=== PATIENT | male | born 1955 | race Two or more races ===

== ENCOUNTER 2016-12-02 10:08 | Inpatient (IN) | payer MEDICARE, MEDICAID ==
[~2016-12-02] VITALS: Ht 165.1 cm; Wt 81.9 kg
[~2016-12-02 10:08] MED LIST: AMOX500T86 PO; ASPI-231 PO; DIPH2.5T73 PO; DOCU-94 PO; GABA-497 PO; HYDR-4663 PO; MULTCHW OR; SENN-58 PO
[2016-12-02] MEDS ORDERED: FENO145T20 PO (10:27)
[2016-12-02] MEDS ORDERED: INSU70IN3 SC (10:29)
[2016-12-02] MEDS ORDERED: TAMS0.4C36 PO (10:29)
[2016-12-02] MEDS ORDERED: MULT-647 PO (10:30)
[2016-12-02] MEDS ORDERED: CLINDAMYCIN 600MG IV 50 ML IV ONE (10:30)
[2016-12-02 10:57] LABS: Basophils # (auto) 0.1 uL; Basophils % (auto) 0.4 % (0.0-2.0); Eosinophils # (auto) 0.3 uL; Eosinophils % (auto) 1.7 % (0.0-7.0); Hematocrit 31.2 % (41.0-53.0); Hemoglobin 10.1 g/dL (13.5-17.5); Lymphocytes # (auto) 1.1 uL; Lymphocytes % (auto) 6.9 % (10.0-50.0); Mean Corpuscular Hemoglobin 32.5 pg (28.0-32.0); Mean Corpuscular Hgb Conc. 32.6 g/dL (32.0-36.0); Mean Corpuscular Volume 99.9 fL (80.0-100.0); Mean Platelet Volume 8.8 fL (6.9-10.8); Monocytes % (auto) 6.2 % (0.0-12.0); Neutrophils # (auto) 13.8 uL; Neutrophils % (auto) 84.8 % (37.0-80.0); Platelet Count (auto) 247 10^3/uL (140-450); Red Cell Distribution Width 15.4 % (11.8-14.3); White Blood Cell 16.3 10^3/uL (4.4-10.8)
[2016-12-02 11:16] LABS: Albumin 2.5 g/dL (3.4-5.0); BUN/Creatinine Ratio 4.3; Bilirubin, Total 0.7 mg/dL (0.2-1.0); Calcium 8.1 mg/dL (8.5-10.1); Potassium 4.2 mmol/L (3.5-5.1); Total Protein 8.3 g/dL (6.4-8.2)
[2016-12-02 11:25] LABS: INR 1.12 (0.9-1.15); Partial Thromboplastin Time 31.7 sec (22.64-33.71); Prothrombin Time 12.2 sec (9.37-12.3)
[2016-12-02] MEDS ORDERED: ONDANSETRON HCL 4 MG/2 ML VIAL IV PRN (11:30)
[2016-12-02] MEDS ORDERED: NITROGLYCERIN 0.4 MG SL TAB SL PRN (11:30)
[2016-12-02] MEDS ORDERED: MORPHINE SULF INJ 2 MG/ML SYRINGE 1ML IV PRN (11:30)
[2016-12-02] MEDS ORDERED: DEXTROSE (50%) 50ML SYRG IV PRN (11:30)
[2016-12-02] MEDS ORDERED: ACETAMINOPHEN 325 MG TAB PO PRN (11:30)
[2016-12-02] MEDS ORDERED: HYDROcodone-ACET 5/325MG TAB PO PRN (11:30)
[2016-12-02] MEDS: InsuLIN REG 1unit/0.01ml Soln (100units/ml) SC SCH ×3 (11:30→22:00)
[2016-12-02] MEDS ORDERED: DOCUSATE SOD 100 MG CAP PO PRN (11:30)
[2016-12-02] MEDS ORDERED: DIPHENOXYLATE W/ATROPINE 2.5 MG TAB PO PRN (11:45)
[2016-12-02] MEDS ORDERED: SENNA 8.6 MG TAB PO PRN (11:45)
[2016-12-02] MEDS ORDERED: cefTRIAXone 1GM/50ML D5W 50 ML IV ONE (11:45)
[2016-12-02] MEDS: ACCU-CHEK COMFORT CURVE STRIP VI SCH ×3 (12:26→22:02)
[2016-12-02] MEDS: SEVELAMER 800 MG TAB PO SCH ×2 (12:31→18:07)
[2016-12-02] MEDS: INSULIN 70/30 1unit/0.01ml Susp (100units/ml) SC SCH ×2 (12:31→18:00)
[2016-12-02] MEDS: MULTIPLE VITAMIN TAB PO SCH (12:32)
[2016-12-02] MEDS: ASCORBIC ACID 500 MG TAB PO SCH ×2 (12:32→22:01)
[2016-12-02] MEDS: ZINC SULFATE 220 MG CAP PO SCH (12:32)
[2016-12-02] MEDS: SODIUM CHLOR 0.9% PF (SALINE LOCK) 10ML VIAL IV SCH ×2 (12:32→22:01)
[2016-12-02] MEDS: FAMOTIDINE 20 MG TAB PO SCH ×2 (12:32→22:01)
[2016-12-02 13:03] LABS: B-Type Natriuretic Peptide 614.62 pg/mL (0-100)
[2016-12-02 13:10] LABS: Temperature: 22.4 C (20.0-25.0)
[2016-12-02 13:15] VITALS: BP 166/78
[2016-12-02 13:30] VITALS: BP 166/78
[2016-12-02] MEDS ORDERED: GABAPENTIN 300 MG CAP PO SCH (14:00)
[2016-12-02] MEDS: GABAPENTIN 300 MG CAP PO SCH (14:07)
[2016-12-02 16:45] VITALS: BP 150/72
[2016-12-02] MEDS: TAMSULOSIN HYDROCHLORIDE 0.4 MG CAP PO SCH (18:07)
[2016-12-02] MEDS: CLINDAMYCIN 300MG IV 50 ML IV SCH (18:56)
[2016-12-02] MEDS: ATORVASTATIN 20 MG TAB PO SCH (22:01)
[2016-12-02 22:56] VITALS: BP 140/66
[2016-12-03] VITALS (8 sets, daily range): BP systolic 123–144; BP diastolic 53–94
[2016-12-03] MEDS: CLINDAMYCIN 300MG IV 50 ML IV SCH ×2 (02:54→11:00)
[2016-12-03 05:19] LABS: Basophils # (auto) 0.1 uL; Basophils % (auto) 0.3 % (0.0-2.0); Eosinophils # (auto) 0.3 uL; Eosinophils % (auto) 1.6 % (0.0-7.0); Hematocrit 28.9 % (41.0-53.0); Hemoglobin 9.4 g/dL (13.5-17.5); Lymphocytes # (auto) 1.4 uL; Lymphocytes % (auto) 8.8 % (10.0-50.0); Mean Corpuscular Hemoglobin 32.6 pg (28.0-32.0); Mean Corpuscular Hgb Conc. 32.5 g/dL (32.0-36.0); Mean Corpuscular Volume 100.3 fL (80.0-100.0); Monocytes # (auto) 1.3 uL; Monocytes % (auto) 8.2 % (0.0-12.0); Neutrophils # (auto) 12.6 uL; Neutrophils % (auto) 81.1 % (37.0-80.0); Platelet Count (auto) 257 10^3/uL (140-450); Red Cell Distribution Width 15.2 % (11.8-14.3); White Blood Cell 15.5 10^3/uL (4.4-10.8)
[2016-12-03] MEDS: SODIUM CHLOR 0.9% PF (SALINE LOCK) 10ML VIAL IV SCH ×3 (05:46→21:32)
[2016-12-03 05:48] LABS: Albumin 2.4 g/dL (3.4-5.0); Calcium 8.2 mg/dL (8.5-10.1); Potassium 4.4 mmol/L (3.5-5.1)
[2016-12-03 05:57] LABS: BUN/Creatinine Ratio 4.5; Bilirubin, Total 0.6 mg/dL (0.2-1.0); Total Protein 7.8 g/dL (6.4-8.2)
[2016-12-03] MEDS: ACCU-CHEK COMFORT CURVE STRIP VI SCH ×4 (06:03→21:32)
[2016-12-03] MEDS: InsuLIN REG 1unit/0.01ml Soln (100units/ml) SC SCH ×4 (06:11→22:00)
[2016-12-03] MEDS ORDERED: SODIUM CHL 0.9% 1000 ML BAG XX ONE (08:00)
[2016-12-03] MEDS ORDERED: EPOETIN ALFA 2,000 UNIT/1 ML VIAL IV ONE (08:00)
[2016-12-03] MEDS ORDERED: EPOETIN ALFA 3,000 UNIT/1 ML VIAL IV ONE (08:00)
[2016-12-03] MEDS: SEVELAMER 800 MG TAB PO SCH ×3 (08:23→17:03)
[2016-12-03] MEDS: INSULIN 70/30 1unit/0.01ml Susp (100units/ml) SC SCH ×3 (08:23→17:14)
[2016-12-03] MEDS: cefTRIAXone 1GM/50ML D5W 50 ML IV SCH (08:34)
[2016-12-03] MEDS: ZINC SULFATE 220 MG CAP PO SCH (10:00)
[2016-12-03] MEDS ORDERED: B-COMPLEX W/ C & FOLIC ACID(NEPHROVITE TAB) PO SCH (10:00)
[2016-12-03] MEDS: GABAPENTIN 300 MG CAP PO SCH (10:31)
[2016-12-03] MEDS: ASCORBIC ACID 500 MG TAB PO SCH ×2 (10:31→21:32)
[2016-12-03] MEDS: MULTIPLE VITAMIN TAB PO SCH (10:31)
[2016-12-03] MEDS: ASPirin-EC 81 mg tab PO SCH (10:31)
[2016-12-03] MEDS: FAMOTIDINE 20 MG TAB PO SCH ×2 (10:31→21:31)
[2016-12-03] MEDS: Boost Glucose Control 8 Ounces PO SCH ×2 (11:53→17:03)
[2016-12-03] MEDS: TAMSULOSIN HYDROCHLORIDE 0.4 MG CAP PO SCH (17:03)
[2016-12-03] MEDS: PRO-STAT 64 30ML PO SCH (17:03)
[2016-12-03] MEDS ORDERED: VANCOMYCIN 1GM/250ML D5W 250 ML IV ONE (18:00)
[2016-12-03] MEDS ORDERED: VANCOMYCIN PER PHARMACY 0 MG IV SCH (18:00)
[2016-12-03] MEDS: TEMAZEPAM 15 MG CAP PO PRN (21:30)
[2016-12-03] MEDS: ATORVASTATIN 20 MG TAB PO SCH (21:32)
[2016-12-04 05:19] LABS: Basophils # (auto) 0.1 uL; Basophils % (auto) 0.5 % (0.0-2.0); Eosinophils # (auto) 0.2 uL; Eosinophils % (auto) 1.4 % (0.0-7.0); Hematocrit 29.1 % (41.0-53.0); Hemoglobin 9.6 g/dL (13.5-17.5); Lymphocytes # (auto) 1.6 uL; Lymphocytes % (auto) 10.4 % (10.0-50.0); Mean Corpuscular Hemoglobin 33.1 pg (28.0-32.0); Mean Corpuscular Volume 100.1 fL (80.0-100.0); Mean Platelet Volume 8.7 fL (6.9-10.8); Monocytes # (auto) 1.4 uL; Monocytes % (auto) 8.7 % (0.0-12.0); Neutrophils # (auto) 12.4 uL; Nucleated Red Blood Cells % 0.2 %; Platelet Count (auto) 281 10^3/uL (140-450); Red Cell Distribution Width 15.5 % (11.8-14.3); White Blood Cell 15.7 10^3/uL (4.4-10.8)
[2016-12-04 05:23] VITALS: BP 117/52
[2016-12-04 05:36] LABS: Albumin 2.3 g/dL (3.4-5.0); Potassium 3.9 mmol/L (3.5-5.1)
[2016-12-04 05:38] LABS: BUN/Creatinine Ratio 4.2
[2016-12-04 05:44] LABS: Bilirubin, Total 0.6 mg/dL (0.2-1.0)
[2016-12-04] MEDS: ACCU-CHEK COMFORT CURVE STRIP VI SCH ×4 (06:51→21:25)
[2016-12-04] MEDS: SODIUM CHLOR 0.9% PF (SALINE LOCK) 10ML VIAL IV SCH ×3 (06:51→21:25)
[2016-12-04] MEDS: InsuLIN REG 1unit/0.01ml Soln (100units/ml) SC SCH ×4 (06:51→21:40)
[2016-12-04] MEDS: PRO-STAT 64 30ML PO SCH ×2 (07:38→17:14)
[2016-12-04] MEDS: Boost Glucose Control 8 Ounces PO SCH ×3 (07:38→17:14)
[2016-12-04 08:00] VITALS: BP 123/53
[2016-12-04] MEDS: SEVELAMER 800 MG TAB PO SCH ×3 (08:00→17:36)
[2016-12-04] MEDS: INSULIN 70/30 1unit/0.01ml Susp (100units/ml) SC SCH ×3 (08:00→17:37)
[2016-12-04 08:40] VITALS: BP 126/53
[2016-12-04] MEDS: cefTRIAXone 1GM/50ML D5W 50 ML IV SCH (08:43)
[2016-12-04] MEDS: FAMOTIDINE 20 MG TAB PO SCH ×2 (10:00→21:24)
[2016-12-04] MEDS: ZINC SULFATE 220 MG CAP PO SCH (10:00)
[2016-12-04] MEDS: GABAPENTIN 300 MG CAP PO SCH (10:00)
[2016-12-04] MEDS: MULTIPLE VITAMIN TAB PO SCH (10:00)
[2016-12-04] MEDS: ASCORBIC ACID 500 MG TAB PO SCH ×2 (10:00→21:24)
[2016-12-04] MEDS: ASPirin-EC 81 mg tab PO SCH (10:00)
[2016-12-04 13:05] VITALS: BP 96/44
[2016-12-04] MEDS ORDERED: ceFAZolin 1GM/50ML D5W 50 ML IV ONE (13:51)
[2016-12-04] MEDS ORDERED: VANCOMYCIN 1GM/250ML D5W 250 ML IV ONE ×2 (15:00→16:00)
[2016-12-04 16:19] VITALS: BP 123/53
[2016-12-04] MEDS: TAMSULOSIN HYDROCHLORIDE 0.4 MG CAP PO SCH (17:36)
[2016-12-04] MEDS: ATORVASTATIN 20 MG TAB PO SCH (21:24)
[2016-12-04 23:57] VITALS: BP 148/66
[2016-12-05 05:26] LABS: Basophils # (auto) 0.8 uL; Eosinophils # (auto) 0.3 uL; Eosinophils % (auto) 2.3 % (0.0-7.0); Hematocrit 31.1 % (41.0-53.0); Hemoglobin 10.1 g/dL (13.5-17.5); Lymphocytes # (auto) 0.9 uL; Lymphocytes % (auto) 7.2 % (10.0-50.0); Mean Corpuscular Hemoglobin 32.5 pg (28.0-32.0); Mean Corpuscular Hgb Conc. 32.6 g/dL (32.0-36.0); Mean Corpuscular Volume 99.8 fL (80.0-100.0); Monocytes # (auto) 1.1 uL; Monocytes % (auto) 8.5 % (0.0-12.0); Neutrophils # (auto) 9.7 uL; Platelet Count (auto) 323 10^3/uL (140-450); Red Cell Distribution Width 15.4 % (11.8-14.3); White Blood Cell 12.8 10^3/uL (4.4-10.8)
[2016-12-05 05:45] VITALS: BP 139/66
[2016-12-05 05:49] LABS: Potassium 4.2 mmol/L (3.5-5.1)
[2016-12-05 05:57] LABS: Albumin 2.4 g/dL (3.4-5.0); Bilirubin, Total 0.5 mg/dL (0.2-1.0); Calcium 8.2 mg/dL (8.5-10.1); Total Protein 8.3 g/dL (6.4-8.2)
[2016-12-05] MEDS: InsuLIN REG 1unit/0.01ml Soln (100units/ml) SC SCH ×4 (06:25→22:08)
[2016-12-05] MEDS: SODIUM CHLOR 0.9% PF (SALINE LOCK) 10ML VIAL IV SCH ×3 (06:25→21:37)
[2016-12-05] MEDS: ACCU-CHEK COMFORT CURVE STRIP VI SCH ×4 (06:25→22:06)
[2016-12-05] MEDS: Boost Glucose Control 8 Ounces PO SCH ×3 (07:54→17:37)
[2016-12-05] MEDS: PRO-STAT 64 30ML PO SCH ×2 (07:54→17:37)
[2016-12-05] MEDS: SEVELAMER 800 MG TAB PO SCH ×3 (07:57→17:37)
[2016-12-05] MEDS: cefTRIAXone 1GM/50ML D5W 50 ML IV SCH (09:14)
[2016-12-05 09:17] VITALS: BP 152/71
[2016-12-05] MEDS: ZINC SULFATE 220 MG CAP PO SCH (09:35)
[2016-12-05] MEDS: GABAPENTIN 300 MG CAP PO SCH (09:36)
[2016-12-05] MEDS: MULTIPLE VITAMIN TAB PO SCH (09:36)
[2016-12-05] MEDS: ASCORBIC ACID 500 MG TAB PO SCH ×2 (09:36→21:36)
[2016-12-05] MEDS: FAMOTIDINE 20 MG TAB PO SCH ×2 (09:36→21:36)
[2016-12-05] MEDS: ASPirin-EC 81 mg tab PO SCH (09:36)
[2016-12-05] MEDS: INSULIN 70/30 1unit/0.01ml Susp (100units/ml) SC SCH ×2 (09:37→22:08)
[2016-12-05] MEDS ORDERED: EPOETIN ALFA 10,000 UNIT/1 ML VIAL IV ONE (12:00)
[2016-12-05 17:00] VITALS: BP 104/56
[2016-12-05] MEDS: TAMSULOSIN HYDROCHLORIDE 0.4 MG CAP PO SCH (17:37)
[2016-12-05 19:57] VITALS: BP 110/55
[2016-12-05] MEDS: ATORVASTATIN 20 MG TAB PO SCH (21:36)
[2016-12-05 22:00] VITALS: BP 121/63
[2016-12-06 05:28] VITALS: BP 110/56
[2016-12-06] MEDS: SODIUM CHLOR 0.9% PF (SALINE LOCK) 10ML VIAL IV SCH ×3 (06:37→21:33)
[2016-12-06] MEDS: ACCU-CHEK COMFORT CURVE STRIP VI SCH ×4 (06:37→21:33)
[2016-12-06] MEDS: InsuLIN REG 1unit/0.01ml Soln (100units/ml) SC SCH ×4 (06:38→22:00)
[2016-12-06 07:59] VITALS: BP 84/49
[2016-12-06 08:00] VITALS: BP 101/59
[2016-12-06] MEDS: SEVELAMER 800 MG TAB PO SCH ×3 (08:00→17:37)
[2016-12-06] MEDS: Boost Glucose Control 8 Ounces PO SCH ×3 (08:00→17:37)
[2016-12-06] MEDS: PRO-STAT 64 30ML PO SCH ×2 (08:00→17:37)
[2016-12-06 08:02] VITALS: BP 101/59
[2016-12-06] MEDS: cefTRIAXone 1GM/50ML D5W 50 ML IV SCH (08:33)
[2016-12-06] MEDS: INSULIN 70/30 1unit/0.01ml Susp (100units/ml) SC SCH ×2 (10:00→22:00)
[2016-12-06] MEDS: ZINC SULFATE 220 MG CAP PO SCH (10:00)
[2016-12-06] MEDS: ASCORBIC ACID 500 MG TAB PO SCH ×2 (10:00→21:33)
[2016-12-06] MEDS: ASPirin-EC 81 mg tab PO SCH (10:00)
[2016-12-06] MEDS: ceFAZolin 1GM/50ML D5W 50 ML IV SCH ×2 (10:00→17:36)
[2016-12-06] MEDS: GABAPENTIN 300 MG CAP PO SCH (10:00)
[2016-12-06] MEDS: MULTIPLE VITAMIN TAB PO SCH (10:00)
[2016-12-06] MEDS: FAMOTIDINE 20 MG TAB PO SCH ×2 (10:00→21:33)
[2016-12-06] MEDS ORDERED: NEOMYCIN-BACITRACIN-POLYM 15GM TOP OINT TOP ONE (11:27)
[2016-12-06] MEDS ORDERED: BUPIVACAINE 0.75% INJ 10ML MPV SDV IJ ONE (11:27)
[2016-12-06] MEDS ORDERED: ceFAZolin 1GM VL ONE (11:27)
[2016-12-06] MEDS ORDERED: fentaNYL CITRATE 100 MCG/2 ML VL ONE (12:12)
[2016-12-06] MEDS ORDERED: MIDAZOLAM HCL 1MG/1ML-2 ML VIAL ONE (12:12)
[2016-12-06] MEDS ORDERED: PROPOFOL 10 MG/ML 20 ML IV ONE (12:16)
[2016-12-06] MEDS ORDERED: HYDROmorphone HCL 2 MG/ML VL IV PRN (12:45)
[2016-12-06] MEDS ORDERED: ACCU-CHEK COMFORT CURVE STRIP VI ONE (12:45)
[2016-12-06] MEDS ORDERED: ONDANSETRON HCL 4 MG/2 ML VIAL IV ONE (12:45)
[2016-12-06] MEDS ORDERED: fentaNYL CITRATE 100 MCG/2 ML VL IV PRN (12:45)
[2016-12-06] MEDS ORDERED: ePHEDrine SULFATE 50 MG/ML AMP ONE (12:49)
[2016-12-06] MEDS ORDERED: ONDANSETRON HCL 4 MG/2 ML VIAL ONE (12:57)
[2016-12-06] MEDS ORDERED: METOCLOPRAMIDE HCL 5MG/ml INJ 2ml VIAL ONE (12:57)
[2016-12-06 17:14] VITALS: BP 101/51
[2016-12-06] MEDS: TAMSULOSIN HYDROCHLORIDE 0.4 MG CAP PO SCH (17:36)
[2016-12-06] MEDS: ATORVASTATIN 20 MG TAB PO SCH (21:33)
[2016-12-06 22:00] VITALS: BP 135/67
[2016-12-06] MEDS: TEMAZEPAM 15 MG CAP PO PRN (23:45)
[2016-12-07] VITALS (8 sets, daily range): BP systolic 102–152; BP diastolic 56–74
[2016-12-07] MEDS: ceFAZolin 1GM/50ML D5W 50 ML IV SCH ×3 (02:16→17:28)
[2016-12-07] MEDS: ACCU-CHEK COMFORT CURVE STRIP VI SCH ×4 (06:33→21:49)
[2016-12-07] MEDS: SODIUM CHLOR 0.9% PF (SALINE LOCK) 10ML VIAL IV SCH ×3 (06:33→21:46)
[2016-12-07] MEDS: MORPHINE SULF INJ 2 MG/ML SYRINGE 1ML IV PRN ×3 (06:34→21:03)
[2016-12-07] MEDS: InsuLIN REG 1unit/0.01ml Soln (100units/ml) SC SCH ×4 (06:34→21:49)
[2016-12-07] MEDS: SEVELAMER 800 MG TAB PO SCH ×3 (07:30→17:27)
[2016-12-07] MEDS: Boost Glucose Control 8 Ounces PO SCH ×3 (08:00→17:28)
[2016-12-07] MEDS: PRO-STAT 64 30ML PO SCH ×2 (08:00→17:28)
[2016-12-07] MEDS: INSULIN 70/30 1unit/0.01ml Susp (100units/ml) SC SCH ×2 (10:00→21:49)
[2016-12-07 10:39] LABS: Basophils # (auto) 0.1 uL; Basophils % (auto) 0.7 % (0.0-2.0); Eosinophils # (auto) 0.2 uL; Lymphocytes # (auto) 1.3 uL; Mean Platelet Volume 8.3 fL (6.9-10.8); Monocytes % (auto) 9.2 % (0.0-12.0); Neutrophils # (auto) 8.5 uL
[2016-12-07 10:40] LABS: Eosinophils % (auto) 1.6 % (0.0-7.0); Hematocrit 30.5 % (41.0-53.0); Lymphocytes % (auto) 11.5 % (10.0-50.0); Mean Corpuscular Hemoglobin 33.5 pg (28.0-32.0); Mean Corpuscular Hgb Conc. 32.9 g/dL (32.0-36.0); Mean Corpuscular Volume 101.7 fL (80.0-100.0); Platelet Count (auto) 341 10^3/uL (140-450); Red Cell Distribution Width 15.8 % (11.8-14.3)
[2016-12-07 10:57] LABS: Calcium 8.4 mg/dL (8.5-10.1)
[2016-12-07] MEDS: ZINC SULFATE 220 MG CAP PO SCH (12:41)
[2016-12-07] MEDS: FAMOTIDINE 20 MG TAB PO SCH ×2 (12:41→21:46)
[2016-12-07] MEDS: ASPirin-EC 81 mg tab PO SCH (12:41)
[2016-12-07] MEDS: GABAPENTIN 300 MG CAP PO SCH (12:41)
[2016-12-07] MEDS: ASCORBIC ACID 500 MG TAB PO SCH ×2 (12:42→21:46)
[2016-12-07] MEDS: MULTIPLE VITAMIN TAB PO SCH (12:42)
[2016-12-07] MEDS: TAMSULOSIN HYDROCHLORIDE 0.4 MG CAP PO SCH (17:27)
[2016-12-07] MEDS: ATORVASTATIN 20 MG TAB PO SCH (21:46)
[2016-12-08] VITALS (7 sets, daily range): BP systolic 121–154; BP diastolic 60–73
[2016-12-08] MEDS: ceFAZolin 1GM/50ML D5W 50 ML IV SCH ×3 (01:51→17:40)
[2016-12-08] MEDS: SODIUM CHLOR 0.9% PF (SALINE LOCK) 10ML VIAL IV SCH ×3 (05:25→21:53)
[2016-12-08 05:57] LABS: Basophils # (auto) 0.1 uL; Eosinophils # (auto) 0.2 uL; Monocytes # (auto) 1.2 uL; Neutrophils # (auto) 7.6 uL
[2016-12-08 05:59] LABS: Basophils % (auto) 0.6 % (0.0-2.0); Eosinophils % (auto) 1.5 % (0.0-7.0); Hemoglobin 9.1 g/dL (13.5-17.5); Lymphocytes # (auto) 1.6 uL; Lymphocytes % (auto) 15.1 % (10.0-50.0); Mean Corpuscular Hemoglobin 33.5 pg (28.0-32.0); Mean Corpuscular Hgb Conc. 32.6 g/dL (32.0-36.0); Mean Corpuscular Volume 102.5 fL (80.0-100.0); Mean Platelet Volume 8.2 fL (6.9-10.8); Monocytes % (auto) 11.3 % (0.0-12.0); Neutrophils % (auto) 71.5 % (37.0-80.0); Nucleated Red Blood Cells % 0.1 %; Platelet Count (auto) 346 10^3/uL (140-450); Red Cell Distribution Width 16.3 % (11.8-14.3); White Blood Cell 10.6 10^3/uL (4.4-10.8)
[2016-12-08] MEDS: ACCU-CHEK COMFORT CURVE STRIP VI SCH ×4 (06:21→21:56)
[2016-12-08] MEDS: InsuLIN REG 1unit/0.01ml Soln (100units/ml) SC SCH ×4 (06:21→21:56)
[2016-12-08] MEDS: PRO-STAT 64 30ML PO SCH ×2 (08:06→18:03)
[2016-12-08] MEDS: Boost Glucose Control 8 Ounces PO SCH ×3 (08:06→18:03)
[2016-12-08] MEDS: SEVELAMER 800 MG TAB PO SCH ×3 (08:07→17:40)
[2016-12-08] MEDS: INSULIN 70/30 1unit/0.01ml Susp (100units/ml) SC SCH ×2 (10:00→21:56)
[2016-12-08] MEDS: ASCORBIC ACID 500 MG TAB PO SCH ×2 (10:30→21:54)
[2016-12-08] MEDS: GABAPENTIN 300 MG CAP PO SCH (10:30)
[2016-12-08] MEDS: ASPirin-EC 81 mg tab PO SCH (10:30)
[2016-12-08] MEDS: FAMOTIDINE 20 MG TAB PO SCH ×2 (10:30→21:54)
[2016-12-08] MEDS: MULTIPLE VITAMIN TAB PO SCH (10:30)
[2016-12-08] MEDS: ZINC SULFATE 220 MG CAP PO SCH (10:30)
[2016-12-08] MEDS ORDERED: BACITRACIN TOP OINT 1 UD PKG TOP SCH (13:15)
[2016-12-08] MEDS ORDERED: NEOMYCIN-BACITRACIN-POLYM 15GM TOP OINT TOP SCH (14:30)
[2016-12-08] MEDS: MORPHINE SULF INJ 2 MG/ML SYRINGE 1ML IV PRN (14:39)
[2016-12-08] MEDS: TAMSULOSIN HYDROCHLORIDE 0.4 MG CAP PO SCH (17:40)
[2016-12-08] MEDS: ATORVASTATIN 20 MG TAB PO SCH (21:54)
[2016-12-09] MEDS: ceFAZolin 1GM/50ML D5W 50 ML IV SCH ×2 (01:39→10:00)
[2016-12-09 05:00] VITALS: BP 135/69
[2016-12-09] MEDS: SODIUM CHLOR 0.9% PF (SALINE LOCK) 10ML VIAL IV SCH ×3 (05:38→21:23)
[2016-12-09] MEDS: ACCU-CHEK COMFORT CURVE STRIP VI SCH ×4 (06:20→21:24)
[2016-12-09] MEDS: InsuLIN REG 1unit/0.01ml Soln (100units/ml) SC SCH ×4 (06:20→21:37)
[2016-12-09 07:07] LABS: Basophils # (auto) 0.1 uL
[2016-12-09 07:08] LABS: BUN/Creatinine Ratio 4.3; Calcium 8.4 mg/dL (8.5-10.1)
[2016-12-09 07:10] LABS: Basophils % (auto) 0.6 % (0.0-2.0); Eosinophils # (auto) 0.2 uL; Eosinophils % (auto) 2.1 % (0.0-7.0); Hematocrit 28.7 % (41.0-53.0); Hemoglobin 9.3 g/dL (13.5-17.5); Lymphocytes # (auto) 1.6 uL; Lymphocytes % (auto) 14.8 % (10.0-50.0); Mean Corpuscular Hemoglobin 33.3 pg (28.0-32.0); Mean Corpuscular Hgb Conc. 32.5 g/dL (32.0-36.0); Mean Corpuscular Volume 102.5 fL (80.0-100.0); Mean Platelet Volume 8.3 fL (6.9-10.8); Monocytes # (auto) 0.9 uL; Monocytes % (auto) 8.2 % (0.0-12.0); Neutrophils # (auto) 8.1 uL; Neutrophils % (auto) 74.3 % (37.0-80.0); Platelet Count (auto) 383 10^3/uL (140-450); Red Cell Distribution Width 16.3 % (11.8-14.3)
[2016-12-09 08:00] VITALS: BP 108/51
[2016-12-09] MEDS: Boost Glucose Control 8 Ounces PO SCH ×3 (08:00→18:17)
[2016-12-09] MEDS: SEVELAMER 800 MG TAB PO SCH ×3 (08:05→18:17)
[2016-12-09] MEDS: PRO-STAT 64 30ML PO SCH ×2 (08:06→18:17)
[2016-12-09] MEDS: FAMOTIDINE 20 MG TAB PO SCH ×2 (10:00→21:37)
[2016-12-09] MEDS: MULTIPLE VITAMIN TAB PO SCH (10:00)
[2016-12-09] MEDS: GABAPENTIN 300 MG CAP PO SCH (10:00)
[2016-12-09] MEDS: ASCORBIC ACID 500 MG TAB PO SCH ×2 (10:00→21:37)
[2016-12-09] MEDS: INSULIN 70/30 1unit/0.01ml Susp (100units/ml) SC SCH ×2 (10:00→21:37)
[2016-12-09] MEDS: ASPirin-EC 81 mg tab PO SCH (10:00)
[2016-12-09] MEDS: ZINC SULFATE 220 MG CAP PO SCH (10:00)
[2016-12-09] MEDS ORDERED: HYDROcodone-ACET 5/325MG TAB PO PRN (10:15)
[2016-12-09] MEDS ORDERED: DIPHENOXYLATE W/ATROPINE 2.5 MG TAB PO PRN (10:15)
[2016-12-09] MEDS ORDERED: TEMAZEPAM 15 MG CAP PO PRN (10:15)
[2016-12-09] MEDS ORDERED: MORPHINE SULF INJ 2 MG/ML SYRINGE 1ML IV PRN (10:15)
[2016-12-09 12:00] VITALS: BP 138/65
[2016-12-09 13:22] LABS: INR 1.15 (0.9-1.15); Prothrombin Time 12.5 sec (9.37-12.3)
[2016-12-09 17:00] VITALS: BP 135/75
[2016-12-09] MEDS: TAMSULOSIN HYDROCHLORIDE 0.4 MG CAP PO SCH (18:16)
[2016-12-09] MEDS: MORPHINE SULF INJ 2 MG/ML SYRINGE 1ML IV PRN (21:25)
[2016-12-09] MEDS: ATORVASTATIN 20 MG TAB PO SCH (21:37)
[2016-12-09 22:00] VITALS: BP 147/68
[2016-12-10 05:00] VITALS: BP 138/70
[2016-12-10] MEDS: SODIUM CHLOR 0.9% PF (SALINE LOCK) 10ML VIAL IV SCH ×3 (06:17→22:00)
[2016-12-10] MEDS: InsuLIN REG 1unit/0.01ml Soln (100units/ml) SC SCH ×4 (06:27→21:52)
[2016-12-10] MEDS: ACCU-CHEK COMFORT CURVE STRIP VI SCH ×4 (06:27→21:52)
[2016-12-10 07:51] LABS: BUN/Creatinine Ratio 4.9; Calcium 8.2 mg/dL (8.5-10.1); Phosphorus 7.4 mg/dL (2.5-4.90)
[2016-12-10] MEDS ORDERED: EPOETIN ALFA 10,000 UNIT/1 ML VIAL IV ONE (08:15)
[2016-12-10] MEDS ORDERED: SODIUM CHL 0.9% 1000 ML BAG XX ONE (08:15)
[2016-12-10] MEDS: SEVELAMER 800 MG TAB PO SCH ×3 (08:24→17:45)
[2016-12-10] MEDS: PRO-STAT 64 30ML PO SCH ×2 (08:24→17:45)
[2016-12-10] MEDS: Boost Glucose Control 8 Ounces PO SCH ×3 (08:24→17:46)
[2016-12-10 09:38] VITALS: BP 135/62
[2016-12-10] MEDS: MULTIPLE VITAMIN TAB PO SCH (10:42)
[2016-12-10] MEDS: ceFAZolin 1GM/50ML D5W 50 ML IV SCH (10:42)
[2016-12-10] MEDS: FAMOTIDINE 20 MG TAB PO SCH ×2 (10:42→21:51)
[2016-12-10] MEDS: ZINC SULFATE 220 MG CAP PO SCH (10:42)
[2016-12-10] MEDS: ASCORBIC ACID 500 MG TAB PO SCH ×2 (10:43→21:51)
[2016-12-10] MEDS: GABAPENTIN 300 MG CAP PO SCH (10:43)
[2016-12-10] MEDS: ASPirin-EC 81 mg tab PO SCH (10:43)
[2016-12-10] MEDS: INSULIN 70/30 1unit/0.01ml Susp (100units/ml) SC SCH ×2 (10:49→21:51)
[2016-12-10 14:47] VITALS: BP 151/63
[2016-12-10] MEDS: TAMSULOSIN HYDROCHLORIDE 0.4 MG CAP PO SCH (17:45)
[2016-12-10 18:24] VITALS: BP 125/61
[2016-12-10] MEDS: MORPHINE SULF INJ 2 MG/ML SYRINGE 1ML IV PRN (20:50)
[2016-12-10] MEDS: ATORVASTATIN 20 MG TAB PO SCH (21:51)
[2016-12-10 22:00] VITALS: BP 132/64
[2016-12-11 05:00] VITALS: BP 124/57
[2016-12-11] MEDS: SODIUM CHLOR 0.9% PF (SALINE LOCK) 10ML VIAL IV SCH ×2 (06:00→14:08)
[2016-12-11 06:03] LABS: BUN/Creatinine Ratio 4.4; Calcium 8.4 mg/dL (8.5-10.1); Potassium 5.5 mmol/L (3.5-5.1)
[2016-12-11] MEDS: ACCU-CHEK COMFORT CURVE STRIP VI SCH ×2 (06:29→11:03)
[2016-12-11] MEDS: InsuLIN REG 1unit/0.01ml Soln (100units/ml) SC SCH ×2 (06:29→11:03)
[2016-12-11] MEDS: PRO-STAT 64 30ML PO SCH (08:08)
[2016-12-11] MEDS: SEVELAMER 800 MG TAB PO SCH ×2 (08:08→12:35)
[2016-12-11] MEDS: Boost Glucose Control 8 Ounces PO SCH ×2 (08:09→12:35)
[2016-12-11 09:00] VITALS: BP 128/65
[2016-12-11] MEDS: GABAPENTIN 300 MG CAP PO SCH (09:35)
[2016-12-11] MEDS: FAMOTIDINE 20 MG TAB PO SCH (09:35)
[2016-12-11] MEDS: MULTIPLE VITAMIN TAB PO SCH (09:35)
[2016-12-11] MEDS: ZINC SULFATE 220 MG CAP PO SCH (09:35)
[2016-12-11] MEDS: ceFAZolin 1GM/50ML D5W 50 ML IV SCH (09:35)
[2016-12-11] MEDS: ASPirin-EC 81 mg tab PO SCH (09:35)
[2016-12-11] MEDS: ASCORBIC ACID 500 MG TAB PO SCH (09:36)
[2016-12-11] MEDS: INSULIN 70/30 1unit/0.01ml Susp (100units/ml) SC SCH (10:52)
[2016-12-11 13:00] VITALS: BP 142/65
[2016-12-11 17:00] VITALS: BP 120/69
== END 2016-12-11 16:11 | disposition home health service (06) | DRG 853 ==
LOC: ER 10:08 → TELE 10:09 → TELE-CENTR 14:15 → CENTRAL 12-05 10:23
PROVIDERS: ADMIT Internal Medicine; ATTEND Internal Medicine
PROC: 0QBM0ZZ Excision of Left Tarsal, Open Approach (ICD-10-PCS; principal; 2016-12-06 12:09)
DX: A41.01 Sepsis due to Methicillin susceptible Staphylococcus aureus (principal); N18.6 End stage renal disease; I13.2 Hypertensive heart and chronic kidney disease with heart failure and with stage 5 chronic kidney disease, or end stage renal disease; E44.0 Moderate protein-calorie malnutrition; E10.21 Type 1 diabetes mellitus with diabetic nephropathy; L97.429 Non-pressure chronic ulcer of left heel and midfoot with unspecified severity; E87.1 Hypo-osmolality and hyponatremia; M86.9 Osteomyelitis, unspecified; N25.81 Secondary hyperparathyroidism of renal origin; L89.629 Pressure ulcer of left heel, unspecified stage; E10.22 Type 1 diabetes mellitus with diabetic chronic kidney disease; E10.621 Type 1 diabetes mellitus with foot ulcer; I50.9 Heart failure, unspecified; D63.8 Anemia in other chronic diseases classified elsewhere; E10.69 Type 1 diabetes mellitus with other specified complication; E10.51 Type 1 diabetes mellitus with diabetic peripheral angiopathy without gangrene; E10.622 Type 1 diabetes mellitus with other skin ulcer; E78.5 Hyperlipidemia, unspecified; E83.39 Other disorders of phosphorus metabolism; E87.5 Hyperkalemia; L97.529 Non-pressure chronic ulcer of other part of left foot with unspecified severity; Z93.3 Colostomy status; Z99.2 Dependence on renal dialysis; Z85.038 Personal history of other malignant neoplasm of large intestine; Z86.73 Personal history of transient ischemic attack (TIA), and cerebral infarction without residual deficits; Z68.30 Body mass index [BMI] 30.0-30.9, adult; Z95.0 Presence of cardiac pacemaker
CPT/HCPCS: 36415; 71010; 73620; 78315; 80048; 80053; 80202; 82962; 83036; 83735; 83880; 84100; 84443; 85025; 85610; 85652; 85730; 87040; 87070; 87075; 87077; 87081; 87186; 87205; 90935; 93306; 93926; 96365; 96366; 96375; J0690; J0696; J0885; J1642; J1815; J2250; J2405; J2704; J3490; Q4081